=== PATIENT | male | born 1995 ===

== ENCOUNTER 2018-05-19 18:58 | Emergency (ER) | payer SELFPAY ==
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
== END 2018-05-19 20:33 | disposition home or self-care (01) ==
LOC: ER 18:58
DX: M54.5 Low back pain (principal); V49.59XA Passenger injured in collision with other motor vehicles in traffic accident, initial encounter
CPT/HCPCS: 99282